=== PATIENT | male | born 1995 | race Caucasian/White ===

== ENCOUNTER 2018-06-16 11:35 | Emergency (ER) | payer OTHER ==
[2018-06-16 11:44] VITALS: O2SAT 99; BMI 22.2
[2018-06-16] MEDS ORDERED: Povidone Iodine Topical 10% Sol ONE (12:46)
--- NOTE | 2018-06-16 12:51 | ED PDOC ---
Upper Extremity Pain/Injury Chief Complaint (Provider): Left finger injury History Per: Patient History/Exam Limitations: no limitations Onset/Duration Of Symptoms: Hrs Current Symptoms Are (Timing): Still Present Additional Complaint(s): 22 y/o male presents to the ED complaining of left thumb injury sustained prior to arrival. He states earlier today he accidentally dropped a heavy bench on the left thumb. Denies any numbness, tingling, or other injuries. PMD: None <Baljinder Campos - Last Filed: 06/16/18 13:11> <Jolynn Mcnamara F - Last Filed: 06/17/18 15:40> Time Seen by Provider: 06/16/18 12:13 Chief Complaint (Nursing): Trauma Supervising Attending Note - Attestation: I have personally seen and examined this patient.: No I have reviewed all pertinent clinical information: Yes <Jolynn Mcnamara - Last Filed: 06/17/18 15:40> Past Medical History Reviewed: Historical Data, Nursing Documentation, Vital Signs Vital Signs: Last Vital Signs Temp 98.6 F 06/16/18 11:43 Pulse 62 06/16/18 11:43 Resp 20 06/16/18 11:43 BP 120/74 06/16/18 11:43 Pulse Ox 99 06/16/18 11:43 - Family History Family History: States: No Known Family Hx <Baljinder Campos - Last Filed: 06/16/18 13:11> Vital Signs: Last Vital Signs Temp 98.3 F 06/16/18 13:17 Pulse 66 06/16/18 13:17 Resp 18 06/16/18 13:17 BP 127/82 06/16/18 13:17 Pulse Ox 99 06/16/18 13:28 <Jolynn Mcnamara F - Last Filed: 06/17/18 15:40> - Home Medications Home Medications: Ambulatory Orders Medication Instructions Recorded RX: Clindamycin [Cleocin] 300 mg PO TID #9 cap 06/16/18 - Allergies Allergies/Adverse Reactions: Allergies Allergy/AdvReac Type Severity Reaction Status Date / Time No Known Allergies Allergy Verified 06/16/18 12:04 Review of Systems ROS Statement: Except As Marked, All Systems Reviewed And Found Negative Constitutional: Negative for: Fever Musculoskeletal: Positive for: Hand Pain (Left thumb pain) Skin: Negative for: Lesions Neurological: Negative for: Weakness, Numbness, Incoordination <Baljinder Campos Brad Last Filed: 06/16/18 13:11> Physical Exam - Reviewed Nursing Documentation Reviewed: Yes Vital Signs Reviewed: Yes - Physical Exam Appears: Positive for: Well, Non-toxic, No Acute Distress Head Exam: Positive for: ATRAUMATIC, NORMOCEPHALIC Skin: Positive for: Normal Color, Warm Eye Exam: Positive for: Normal appearance Pulses-Radial (L): 2+ Pulses-Radial (R): 2+ Extremity: Positive for: Normal ROM, Tenderness (to the nail), Capillary Refill (less than 2 sec), Other (Left thumb with 100% subungual hematoma. Distal sensation intact; Nail appears intact). Negative for: Deformity Neurologic/Psych: Positive for: Alert, Oriented (x3). Negative for: Motor/Sensory Deficits <BethBaljinder Salinas Last Filed: 06/16/18 13:11> - ECG O2 Sat by Pulse Oximetry: 99 (RA) Pulse Ox Interpretation: Normal - Radiology X-Ray: Interpreted by Me X-Ray Interpretation: Other (L thumb with minimal displaced distal phalanx fx) <BethBaljinder Salinas Last Filed: 06/16/18 13:11> Medical Decision Making Medical Decision Making: Impression: 22 yo male with left thumb injury Initial Plan: --Left Hand x-ray --Wound care X-ray findings discussed with patient. Scribe Attestation: Documented by Emiliana Garcia, acting as a scribe for Baljinder Campos PA-C. Provider Scribe Attestation: All medical record entries made by the Scribe were at my direction and personally dictated by me. I have reviewed the chart and agree that the record accurately reflects my personal performance of the history, physical exam, medical decision making, and the department course for this patient. I have also personally directed, reviewed, and agree with the discharge instructions and disposition. <HarrisonglenBaljinder - Last Filed: 06/16/18 13:11> Procedures - Time-Out Type of Procedure: Subungual hematoma evacuation Site of Procedure: L thumb Correct Patient: Yes Correct Procedure: Yes Correct Site Marked: Yes X-Ray Marked: Yes - Nail Trepanation Nail Trepanation Location: L thumb Method of Drainage: nail cauterized Sterile Dressing Applied: Yes Finger Splint: Yes <HarrisonglenBaljinder - Last Filed: 06/16/18 13:11> Disposition - Patient ED Disposition Is Patient to be Admitted: No - Disposition Disposition: Routine/Home Disposition Time: 13:12 <Baljinder Campos - Last Filed: 06/16/18 13:11> <Jolynn Mcnamara - Last Filed: 06/17/18 15:40> - Clinical Impression Clinical Impression: Subungual hematoma, Thumb fracture - Disposition Referrals: [facility] [Outside] Narciso Trejo MD [Medical Doctor] - Condition: STABLE Additional Instructions: ROMÁN BRADY, thank you for letting us take care of you today. Your provider was Jolynn Mcnamara MD and you were treated for HAND INJURY. The emergency medical care you received today was directed at your acute symptoms. If you were prescribed any medication, please fill it and take as directed. It may take several days for your symptoms to resolve. Return to the Emergency Department if your symptoms worsen, do not improve, or if you have any other problems. Please contact your doctor or call one of the physicians/clinics you have been referred to that are listed on the Patient Visit Information form that is included in your discharge packet. Bring any paperwork you were given at discharge with you along with any medications you are taking to your follow up visit. Our treatment cannot replace ongoing medical care by a primary care provider outside of the emergency department. Thank you for allowing the [facility] team to be part of your care today. If you had an X-Ray or CT scan: A Radiologist will review the ED reading if any change in treatment is needed we will contact you. If you had a blood, urine, or wound culture: It will take several days for the results, if any change in treatment is needed we will contact you. If you had an STI test: It will take 48 hours for the results. Please call after 1 week if you have not heard back. Prescriptions: RX: Clindamycin [Cleocin] 300 mg PO TID #9 cap Instructions: Finger Fracture (DC) Forms: [facility] (Mauritanian) - PA / CUT OUT PRESS OPERATOR / Resident Statement MD/DO has reviewed & agrees with the documentation as recorded. <Baljinder Campos E - Last Filed: 06/16/18 13:11>
[2018-06-16 13:19] VITALS: BP 127/82; PULSE 66; RESP 18; TEMP 98.3
--- NOTE | 2018-06-16 13:40 | RAD ---
Date of service: 06/16/2018 PROCEDURE: Left Thumb radiographs. HISTORY: trauma COMPARISON: None. TECHNIQUE: AP radiograph of the left hand, as well as spot oblique and lateral images of thumb were obtained. FINDINGS: LEFT THUMB: Normal left thumb, without fracture or focal lesion. Remainder of the left hand (as seen on the AP view) grossly unremarkable. JOINTS: Normal. SOFT TISSUES: Normal. OTHER FINDINGS: None. IMPRESSION: No demonstrated fracture or dislocation.
== END 2018-06-16 13:27 | disposition home or self-care (01) ==
LOC: H.ER 11:35
DX: S62.502A Fracture of unspecified phalanx of left thumb, initial encounter for closed fracture (principal); W22.8XXA Striking against or struck by other objects, initial encounter; Y92.89 Other specified places as the place of occurrence of the external cause